=== PATIENT | male | born 2000 | race African-American/Black ===

== ENCOUNTER 2023-12-27 13:07 | Emergency (ER) | payer OTHER, MEDICAID ==
[~2023-12-27] VITALS: Ht 182.9 cm; Wt 71.0 kg
[2023-12-27 14:00] VITALS: PULSE 75; RESP 14; O2SAT 94
[2023-12-27 14:06] LABS: Basophils # (auto) 0 10 ^3/uL (0-0.2); Basophils % (auto) 0.2 % (0.0-2.0); Blood Urea Nitrogen 11 mg/dL (9-23); Calcium 8.8 mg/dL (8.7-10.4); Carbon Dioxide 26 mmol/L (20-30); Chloride 105 mmol/L (98-107); Eosinophils # (auto) 0 10 ^3/uL (0-0.8); Glucose 89 mg/dL (74-106); Hematocrit 38.9 % (41.0-53.0); Hemoglobin 12.9 g/dL (13.5-17.5); Lymphocytes # (auto) 2.3 10 ^3/uL (0.4-5.4); Lymphocytes % (auto) 23.1 % (10.0-50.0); Mean Corpuscular Hemoglobin 30.7 pg (28.0-32.0); Mean Corpuscular Hgb Conc. 33.3 g/dL (32.0-36.0); Mean Corpuscular Volume 92.4 fL (80.0-100.0); Monocytes # (auto) 0.7 10 ^3/uL (0-1.3); Monocytes % (auto) 7.1 % (0.0-12.0); Neutrophils # (auto) 6.8 10 ^3/uL (1.6-8.6); Neutrophils % (auto) 69.6 % (37.0-80.0); Nucleated Red Blood Cells % 0.2 %; Potassium 3.9 mmol/L (3.5-5.1); Red Blood Cells 4.21 10^6/uL (4.5-5.90); Red Cell Distribution Width 14.6 % (11.8-14.3); Sodium 136 mmol/L (136-145); White Blood Cell 9.8 10^3/uL (4.4-10.8)
[2023-12-27 14:09] LABS: Anion Gap 5 (5-15)
[2023-12-27 14:10] LABS: BUN/Creatinine Ratio 12.5 (10.0-20.0)
[2023-12-27] MEDS: KETOROLAC TROMETH 30 MG/ML 1ML VIAL IV ONE (14:22)
[2023-12-27 17:37] VITALS: BP 105/64; PULSE 80; RESP 16; TEMP 99; O2SAT 95
== END 2023-12-27 17:57 | disposition short-term general hospital (02) ==
LOC: ER 13:07 → EDBD 13:07 → ER 17:57
DX: I30.9 Acute pericarditis, unspecified (principal); R07.89 Other chest pain
CPT/HCPCS: 36415; 71045; 80048; 84484; 85025; 93005; 96374; 99285; J1885